=== PATIENT | male | born 1990 | race Caucasian/White ===

== ENCOUNTER 2023-10-14 07:58 | Emergency (ER) | payer SELFPAY ==
[2023-10-14] MEDS ORDERED: Lorazepam 2 MG/ML VIAL ONE (08:06)
[2023-10-14 08:44] LABS: #Basophils 0.1 10x3/uL (0.0-0.2); #Eosinphils 0.3 10x3/uL (0.0-0.5); #Monocytes 0.7 10x3/uL (0.0-1.1); #Neutrophils 9.8 10x3/uL (1.5-8.4); %Basophils 0.5 % (0.0-2.0); %Eosinophils 1.9 % (0.0-6.0); %Lymphocytes 17.5 % (18.0-47.0); %Neutrophils 74.6 % (40.0-75.0); Hematocrit 50.6 % (38.8-50.0); Mean Corpuscular HGB CONC 35.6 g/dL (32.0-36.0); Mean Corpuscular Hemoglobin 31.7 pg (27.0-33.0); Mean Corpuscular Volume 89.1 fl (81.2-95.1); Platelet Count 299 10x3/uL (150-450); RBC Distribution Width 13.4 % (11.5-14.5); Red Blood Cell (RBC) Count 5.68 10x6/uL (4.32-5.72); White Blood Cell (WBC) Count 13.1 10x3/uL (3.5-10.5)
[2023-10-14 09:02] LABS: Acetaminophen Less than 10 mcg/mL (10.0-30.0); Alcohol Less than 10.0 mg/dL (Less than 10); Salicylate Less than 8.0 mg/dL (15.0-30.0)
[2023-10-14 09:04] LABS: ALT (SGPT) 45 U/L (8-55); AST (SGOT) 47 U/L (5-34); Albumin 4.7 g/dL (3.5-5.0); Alkaline Phosphatase 77 U/L (40-110); Anion Gap 17 mmol/L (10-20); BUN (Urea Nitrogen) 10 mg/dL (8.9-20.6); CK (CPK) 1004 U/L (30-200); Calc. Creatinine Clearance 0 mL/min (70-130); Calcium 10.1 mg/dL (7.8-10.44); Carbon Dioxide 19 mmol/L (22-29); Chloride 106 mmol/L (98-107); Estimated GFR 87; Globulin 3.1 g/dL (2.4-3.5); Glucose 106 mg/dL (70-105); Protein, Total 7.8 g/dL (6.0-8.3); Sodium 138 mmol/L (136-145)
[2023-10-14 09:05] LABS: Troponin I Less than 0.010 ng/mL (< 0.028)
[2023-10-14 09:50] LABS: Bilirubin Neg (Negative); Blood, Urine Negative (Negative); Glucose, Urine (Dipstick) Normal (Negative); Ketone, Urine 5 mg/dL (Negative); Leukocyte Negative (Negative); Nitrite Negative (Negative); Protein, Urine (Dipstick) Negative (Neg-Trace); Specific Gravity, Urine 1.005 (1.005-1.030); Urobilinogen Normal mg/dL (Less than 2)
[2023-10-14 09:53] LABS: Clarity Clear (Clear)
[2023-10-14 09:58] LABS: Amphetamine Not Detected (NotDetected); Barbiturates Screen Not Detected (NotDetected); Benzodiazepine Screen Not Detected (NotDetected); Cocaine Metabolite Screen Not Detected (NotDetected); Methadone Not Detected (NotDetected); Methamphetamine Not Detected (NotDetected); Opiate Screen Not Detected (NotDetected); Oxycodone Screen Not Detected (NotDetected); Phencyclidine (PCP) Not Detected (NotDetected); THC/Cannabinoid Screen Not Detected (NotDetected); Tricyclic Screen Not Detected (NotDetected)
[2023-10-14 10:00] LABS: Bacteria/HPF None Seen HPF (None Seen); CAUTI Indications for Culture Pelvic or flank pain; RBC/HPF None Seen HPF (0-3); Squamous Epithelial 0-3 HPF (0-3); WBC/HPF None Seen HPF (0-3)
[2023-10-14 10:01] LABS: Urine Culture Reflex No No
[2023-10-14 13:08] LABS: Actual Bicarbonate (HCO3v) 23.6 mEq/L (22-28); Analyzer IN Cardio CS ER; Base Excess 3.1 mEq/L (-2 - +2); Calcium, Ionized (venous) 1.14 mmol/L (1.16-1.32); Chloride (VBG) 104 mmol/L (98-106); Hematocrit-VBG 56 % (42.0-52.0); Hemoglobin (Hb) 18.9 g/dL (13.2-17.3); Potassium (VBG) 3.93 mmol/L (3.70-5.30); Puncture Site Other Site; RapidComm Collect By CBN; Sodium 143 mmol/L (133-146); pH (venous) 7.555 (7.32-7.43)
== END 2023-10-14 09:18 | disposition home or self-care (01) ==
LOC: CSHERS 07:58
DX: R41.82 Altered mental status, unspecified (principal); F17.210 Nicotine dependence, cigarettes, uncomplicated; F17.220 Nicotine dependence, chewing tobacco, uncomplicated
CPT/HCPCS: 36415; 36416; 71045; 80053; 80306; 80307; 81001; 82550; 82805; 83605; 84484; 85025; 93005; 96361; 96374; J2060

== ENCOUNTER 2023-10-17 11:24 | Emergency (ER) | payer SELFPAY | END 2023-10-17 11:56 | disposition home or self-care (01) | LOC: CSHERS 11:24 | DX: M79.672 Pain in left foot (principal); F17.210 Nicotine dependence, cigarettes, uncomplicated; F17.220 Nicotine dependence, chewing tobacco, uncomplicated | CPT/HCPCS: 99283 ==

== ENCOUNTER 2023-12-17 18:09 | Emergency (ER) | payer SELFPAY ==
[2023-12-17 21:36] LABS: #Basophils 0.1 10x3/uL (0.0-0.2); #Eosinphils 0.6 10x3/uL (0.0-0.5); #Monocytes 0.6 10x3/uL (0.0-1.1); #Neutrophils 6.4 10x3/uL (1.5-8.4); %Basophils 0.5 % (0.0-2.0); %Eosinophils 5.4 % (0.0-6.0); %Lymphocytes 26.2 % (18.0-47.0); %Monocytes 5.9 % (0.0-10.0); %Neutrophils 61.4 % (40.0-75.0); Hematocrit 47.5 % (38.8-50.0); Hemoglobin 15.9 g/dL (13.5-17.5); Mean Corpuscular HGB CONC 33.5 g/dL (32.0-36.0); Mean Corpuscular Hemoglobin 31.5 pg (27.0-33.0); Mean Corpuscular Volume 94.2 fl (81.2-95.1); Mean Platelet Volume 9.1 fl (7.4-10.4); Platelet Count 230 10x3/uL (150-450); RBC Distribution Width 15.4 % (11.5-14.5); Red Blood Cell (RBC) Count 5.04 10x6/uL (4.32-5.72); White Blood Cell (WBC) Count 10.3 10x3/uL (3.5-10.5)
[2023-12-17 21:48] LABS: ALT (SGPT) 28 U/L (8-55); AST (SGOT) 23 U/L (5-34); Albumin 4.3 g/dL (3.5-5.0); Alkaline Phosphatase 83 U/L (40-110); Anion Gap 14 mmol/L (10-20); BUN (Urea Nitrogen) 7 mg/dL (8.9-20.6); Bilirubin, Total 0.5 mg/dL (0.2-1.2); Calc. Creatinine Clearance 0 mL/min (70-130); Calcium 9.2 mg/dL (7.8-10.44); Carbon Dioxide 25 mmol/L (22-29); Chloride 103 mmol/L (98-107); Estimated GFR 103; Globulin 2.9 g/dL (2.4-3.5); Glucose 98 mg/dL (70-105); Potassium 4.3 mmol/L (3.5-5.1); Protein, Total 7.2 g/dL (6.0-8.3); Sodium 138 mmol/L (136-145)
== END 2023-12-17 22:54 | disposition home or self-care (01) ==
LOC: CSHERS 18:09
DX: I82.812 Embolism and thrombosis of superficial veins of left lower extremity (principal); F17.210 Nicotine dependence, cigarettes, uncomplicated
CPT/HCPCS: 36415; 71045; 71275; 80053; 85025; 93005

== ENCOUNTER 2024-01-20 10:44 | Emergency (ER) | payer SELFPAY ==
[2024-01-20 11:37] LABS: #Basophils 0.1 10x3/uL (0.0-0.2); #Eosinphils 0.3 10x3/uL (0.0-0.5); #Monocytes 0.6 10x3/uL (0.0-1.1); #Neutrophils 5.1 10x3/uL (1.5-8.4); %Basophils 0.9 % (0.0-2.0); %Eosinophils 3.3 % (0.0-6.0); %Lymphocytes 24.5 % (18.0-47.0); %Monocytes 7.5 % (0.0-10.0); %Neutrophils 63.3 % (40.0-75.0); Hematocrit 47.4 % (38.8-50.0); Mean Corpuscular HGB CONC 35.9 g/dL (32.0-36.0); Mean Corpuscular Hemoglobin 34.3 pg (27.0-33.0); Mean Corpuscular Volume 95.8 fl (81.2-95.1); Mean Platelet Volume 9.1 fl (7.4-10.4); Platelet Count 202 10x3/uL (150-450); Red Blood Cell (RBC) Count 4.95 10x6/uL (4.32-5.72)
[2024-01-20 11:57] LABS: ALT (SGPT) 23 U/L (8-55); AST (SGOT) 29 U/L (5-34); Albumin 4.4 g/dL (3.5-5.0); Alkaline Phosphatase 69 U/L (40-110); Anion Gap 13 mmol/L (10-20); BUN (Urea Nitrogen) 8 mg/dL (8.9-20.6); Bilirubin, Total 0.4 mg/dL (0.2-1.2); Calc. Creatinine Clearance 0 mL/min (70-130); Calcium 9.1 mg/dL (7.8-10.44); Carbon Dioxide 28 mmol/L (22-29); Chloride 99 mmol/L (98-107); Estimated GFR 93; Globulin 2.7 g/dL (2.4-3.5); Glucose 89 mg/dL (70-105); Protein, Total 7.1 g/dL (6.0-8.3); Sodium 136 mmol/L (136-145)
[2024-01-20] MEDS ORDERED: Furosemide 40 MG (4 mL) VIAL ONE (12:14)
[2024-01-20 12:15] LABS: Magnesium 2.1 mg/dL (1.6-2.6)
[2024-01-20 12:19] LABS: Troponin I Less than 0.010 ng/mL (< 0.028)
[2024-01-20] MEDS ORDERED: fentaNYL 50 mcg/mL 1 mL Vial ONE (12:47)
== END 2024-01-20 13:20 | disposition home or self-care (01) ==
LOC: CSHERS 10:44
DX: J81.1 Chronic pulmonary edema (principal); F17.290 Nicotine dependence, other tobacco product, uncomplicated; F17.210 Nicotine dependence, cigarettes, uncomplicated
CPT/HCPCS: 36415; 71045; 80053; 83735; 83880; 84484; 85025; 93005; 93970; 96374; J1940; J3010

== ENCOUNTER 2024-02-10 17:09 | Emergency (ER) | payer OTHER, SELFPAY ==
[~2024-02-10 17:09] MED LIST: Iopamidol 300 61% 100 ML VIAL FS ONE
[2024-02-10 17:50] LABS: #Basophils 0.1 10x3/uL (0.0-0.2); #Eosinphils 0.6 10x3/uL (0.0-0.5); #Monocytes 0.6 10x3/uL (0.0-1.1); #Neutrophils 7.1 10x3/uL (1.5-8.4); %Basophils 0.7 % (0.0-2.0); %Eosinophils 5.2 % (0.0-6.0); %Lymphocytes 21.5 % (18.0-47.0); %Monocytes 5.5 % (0.0-10.0); %Neutrophils 66.6 % (40.0-75.0); Hematocrit 46.6 % (38.8-50.0); Hemoglobin 16.2 g/dL (13.5-17.5); Mean Corpuscular HGB CONC 34.8 g/dL (32.0-36.0); Mean Corpuscular Hemoglobin 33.3 pg (27.0-33.0); Mean Corpuscular Volume 95.9 fl (81.2-95.1); Mean Platelet Volume 9.1 fl (7.4-10.4); Platelet Count 231 10x3/uL (150-450); RBC Distribution Width 12.8 % (11.5-14.5); Red Blood Cell (RBC) Count 4.86 10x6/uL (4.32-5.72); White Blood Cell (WBC) Count 10.7 10x3/uL (3.5-10.5)
[2024-02-10 18:06] LABS: ALT (SGPT) 37 U/L (8-55); AST (SGOT) 31 U/L (5-34); Albumin 4.2 g/dL (3.5-5.0); Alkaline Phosphatase 71 U/L (40-110); Anion Gap 17 mmol/L (10-20); BUN (Urea Nitrogen) 6 mg/dL (8.9-20.6); Bilirubin, Total 0.3 mg/dL (0.2-1.2); Calc. Creatinine Clearance 0 mL/min (70-130); Calcium 8.8 mg/dL (7.8-10.44); Carbon Dioxide 20 mmol/L (22-29); Chloride 104 mmol/L (98-107); Estimated GFR 111; Globulin 2.6 g/dL (2.4-3.5); Glucose 92 mg/dL (70-105); Potassium 3.6 mmol/L (3.5-5.1); Protein, Total 6.8 g/dL (6.0-8.3); Sodium 137 mmol/L (136-145)
[2024-02-10 18:12] LABS: Troponin I Less than 0.010 ng/mL (< 0.028)
[2024-02-10 19:54] LABS: Bilirubin Neg (Negative); Blood, Urine Negative (Negative); Clarity Clear (Clear); Glucose, Urine (Dipstick) Normal (Negative); Ketone, Urine Negative (Negative); Leukocyte Negative (Negative); Nitrite Negative (Negative); Protein, Urine (Dipstick) Negative (Neg-Trace); Specific Gravity, Urine 1.005 (1.005-1.030); Urobilinogen Normal mg/dL (Less than 2)
[2024-02-10 20:13] LABS: Bacteria/HPF Rare-Few HPF (None Seen); CAUTI Indications for Culture Alt mental st,lethar; RBC/HPF None Seen HPF (0-3); Squamous Epithelial 0-3 HPF (0-3); WBC/HPF None Seen HPF (0-3)
[2024-02-10 20:14] LABS: Urine Culture Reflex No No
[2024-02-10 20:44] LABS: Amphetamine Not Detected (NotDetected); Barbiturates Screen Not Detected (NotDetected); Benzodiazepine Screen Not Detected (NotDetected); Cocaine Metabolite Screen Not Detected (NotDetected); Methadone Not Detected (NotDetected); Methamphetamine Not Detected (NotDetected); Opiate Screen Not Detected (NotDetected); Oxycodone Screen Not Detected (NotDetected); Phencyclidine (PCP) Not Detected (NotDetected); THC/Cannabinoid Screen Not Detected (NotDetected); Tricyclic Screen Not Detected (NotDetected)
== END 2024-02-10 19:50 | disposition home or self-care (01) ==
LOC: CSHERS 17:09
DX: R55 Syncope and collapse (principal); F10.90 Alcohol use, unspecified, uncomplicated; F17.290 Nicotine dependence, other tobacco product, uncomplicated
CPT/HCPCS: 70450; 71275; 80053; 80306; 81001; 83880; 84484; 85025; 93005; Q9967

== ENCOUNTER 2024-02-12 19:56 | Emergency (ER) | payer SELFPAY ==
[2024-02-12 20:31] LABS: #Basophils 0.1 10x3/uL (0.0-0.2); #Eosinphils 0.5 10x3/uL (0.0-0.5); #Monocytes 0.8 10x3/uL (0.0-1.1); #Neutrophils 9.7 10x3/uL (1.5-8.4); %Basophils 0.7 % (0.0-2.0); %Eosinophils 3.6 % (0.0-6.0); %Lymphocytes 18.6 % (18.0-47.0); %Monocytes 5.5 % (0.0-10.0); %Neutrophils 70.9 % (40.0-75.0); Hematocrit 48.5 % (38.8-50.0); Hemoglobin 16.8 g/dL (13.5-17.5); Mean Corpuscular HGB CONC 34.6 g/dL (32.0-36.0); Mean Corpuscular Hemoglobin 33.8 pg (27.0-33.0); Mean Corpuscular Volume 97.6 fl (81.2-95.1); Mean Platelet Volume 9.3 fl (7.4-10.4); Platelet Count 240 10x3/uL (150-450); RBC Distribution Width 12.6 % (11.5-14.5); Red Blood Cell (RBC) Count 4.97 10x6/uL (4.32-5.72); White Blood Cell (WBC) Count 13.7 10x3/uL (3.5-10.5)
[2024-02-12 20:44] LABS: Acetaminophen Less than 10 mcg/mL (10.0-30.0); Alcohol 11.1 mg/dL (Less than 10); Salicylate Less than 8.0 mg/dL (15.0-30.0)
[2024-02-12 20:45] LABS: ALT (SGPT) 34 U/L (8-55); AST (SGOT) 29 U/L (5-34); Albumin 4.4 g/dL (3.5-5.0); Alkaline Phosphatase 74 U/L (40-110); Anion Gap 15 mmol/L (10-20); BUN (Urea Nitrogen) 9 mg/dL (8.9-20.6); Bilirubin, Total 0.3 mg/dL (0.2-1.2); Calc. Creatinine Clearance 0 mL/min (70-130); Calcium 9.2 mg/dL (7.8-10.44); Carbon Dioxide 25 mmol/L (22-29); Chloride 105 mmol/L (98-107); Estimated GFR 94; Globulin 2.8 g/dL (2.4-3.5); Glucose 98 mg/dL (70-105); Potassium 3.8 mmol/L (3.5-5.1); Protein, Total 7.2 g/dL (6.0-8.3); Sodium 141 mmol/L (136-145)
[2024-02-12 20:48] LABS: Troponin I Less than 0.010 ng/mL (< 0.028)
[2024-02-12 22:01] LABS: Amphetamine Not Detected (NotDetected); Barbiturates Screen Not Detected (NotDetected); Benzodiazepine Screen Not Detected (NotDetected); Cocaine Metabolite Screen Not Detected (NotDetected); Methadone Not Detected (NotDetected); Methamphetamine Not Detected (NotDetected); Opiate Screen Not Detected (NotDetected); Oxycodone Screen Not Detected (NotDetected); Phencyclidine (PCP) Not Detected (NotDetected); THC/Cannabinoid Screen Not Detected (NotDetected); Tricyclic Screen Not Detected (NotDetected)
== END 2024-02-12 22:24 | disposition home or self-care (01) ==
LOC: CSHERS 19:56
DX: R07.9 Chest pain, unspecified (principal); F17.210 Nicotine dependence, cigarettes, uncomplicated
CPT/HCPCS: 36415; 71045; 71275; 80053; 80306; 80307; 83880; 84484; 85025; 85379; 93005

== ENCOUNTER 2024-05-05 08:26 | Emergency (ER) | payer SELFPAY ==
[2024-05-05 09:43] LABS: Amphetamine Not Detected (NotDetected); Barbiturates Screen Not Detected (NotDetected); Benzodiazepine Screen Not Detected (NotDetected); Cocaine Metabolite Screen Not Detected (NotDetected); Methadone Not Detected (NotDetected); Methamphetamine Not Detected (NotDetected); Opiate Screen Not Detected (NotDetected); Oxycodone Screen Not Detected (NotDetected); Phencyclidine (PCP) Not Detected (NotDetected); THC/Cannabinoid Screen Not Detected (NotDetected); Tricyclic Screen Not Detected (NotDetected)
[2024-05-05 09:45] LABS: #Basophils 0.04 10x3/uL (0.0-0.2); #Eosinphils 0.09 10x3/uL (0.0-0.5); #Monocytes 0.83 10x3/uL (0.0-1.1); #Neutrophils 14.01 10x3/uL (1.5-8.4); %Basophils 0.2 % (0.0-2.0); %Eosinophils 0.5 % (0.0-6.0); %Lymphocytes 9.5 % (18.0-47.0); %Neutrophils 84.2 % (40.0-75.0); Hematocrit 44.8 % (38.8-50.0); Hemoglobin 15.5 g/dL (13.5-17.5); Mean Corpuscular HGB CONC 34.6 g/dL (32.0-36.0); Mean Corpuscular Hemoglobin 31.9 pg (27.0-33.0); Mean Corpuscular Volume 92.2 fL (81.2-95.1); Mean Platelet Volume 9.7 fL (7.4-10.4); Platelet Count 202 10x3/uL (150-450); RBC Distribution Width 13.1 % (11.5-14.5); Red Blood Cell (RBC) Count 4.86 10x6/uL (4.32-5.72); White Blood Cell (WBC) Count 16.7 10x3/uL (3.5-10.5)
[2024-05-05 10:02] LABS: ALT (SGPT) 39 U/L (8-55); AST (SGOT) 36 U/L (5-34); Acetaminophen Less than 10 mcg/mL (10.0-30.0); Alcohol Less than 10.0 mg/dL (Less than 10); Alkaline Phosphatase 79 U/L (40-110); Anion Gap 18 mmol/L (10-20); BUN (Urea Nitrogen) 7 mg/dL (8.9-20.6); Bilirubin, Total 0.4 mg/dL (0.2-1.2); Calc. Creatinine Clearance 0 mL/min (70-130); Calcium 9.2 mg/dL (7.8-10.44); Carbon Dioxide 20 mmol/L (22-29); Chloride 105 mmol/L (98-107); Estimated GFR 118; Globulin 2.7 g/dL (2.4-3.5); Glucose 111 mg/dL (70-105); Potassium 3.5 mmol/L (3.5-5.1); Protein, Total 6.7 g/dL (6.0-8.3); Salicylate Less than 8.0 mg/dL (15.0-30.0); Sodium 139 mmol/L (136-145)
[2024-05-05] MEDS ORDERED: Acetaminophen 500 MG TAB ONE (14:07)
== END 2024-05-05 15:17 ==
LOC: CSHERS 08:26
DX: S01.81XA Laceration without foreign body of other part of head, initial encounter (principal); F17.290 Nicotine dependence, other tobacco product, uncomplicated; W22.8XXA Striking against or struck by other objects, initial encounter
CPT/HCPCS: 80053; 80306; 80307; 85025; 99285

== ENCOUNTER 2025-11-26 03:41 | Emergency (ER) | payer OTHER, SELFPAY ==
[2025-11-26] MEDS ORDERED: Ketorolac Tromethamine 30 MG (1 mL) VIAL ONE (04:07)
[2025-11-26] MEDS ORDERED: Famotidine/PF 20 mg/2ml Vial ONE (04:07)
[2025-11-26] MEDS ORDERED: Lidocaine Viscous Sol 2% 15 ml UD Cup ONE (04:07)
[2025-11-26] MEDS ORDERED: Mag-Al 1200 mg/1200 mg/30 ML UDCUP ONE (04:07)
[2025-11-26 04:31] LABS: #Basophils 0.04 10x3/uL (0.0-0.2); #Eosinophils 0.41 10x3/uL (0.0-0.5); #Monocytes 0.55 10x3/uL (0.0-1.1); #Neutrophils 5.38 10x3/uL (1.5-8.4); %Basophils 0.4 % (0.0-2.0); %Eosinophils 4.4 % (0.0-6.0); %Lymphocytes 31.8 % (18.0-47.0); %Monocytes 5.9 % (0.0-10.0); %Neutrophils 57.3 % (40.0-75.0); Hematocrit 48.9 % (38.8-50.0); Hemoglobin 16.5 g/dL (13.5-17.5); Mean Corpuscular Hemoglobin 30.4 pg (27.0-33.0); Mean Corpuscular Volume 90.2 fL (81.2-95.1); Platelet Count 205 10x3/uL (150-450); Red Blood Cell (RBC) Count 5.42 10x6/uL (4.32-5.72); White Blood Cell (WBC) Count 9.39 10x3/uL (3.5-10.5)
[2025-11-26 04:42] LABS: ALT (SGPT) 19 U/L (Less than 45); AST (SGOT) 19 U/L (11-34); Albumin 4.4 g/dL (3.1-4.5); Alkaline Phosphatase 70 U/L (40-110); Anion Gap 15 mmol/L (10-20); BUN (Urea Nitrogen) 10 mg/dL (8.9-20.6); Bilirubin, Total 0.5 mg/dL (0.3-1.2); Calc. Creatinine Clearance 0 mL/min (70-130); Calcium 9.4 mg/dL (7.8-10.44); Carbon Dioxide 28 mmol/L (22-29); Chloride 103 mmol/L (98-107); Globulin 2.7 g/dL (2.4-3.5); Glucose 103 mg/dL (70-105); Potassium 3.8 mmol/L (3.5-5.1); Sodium 142 mmol/L (136-145)
[2025-11-26 04:43] LABS: Acetaminophen Less than 10 mcg/mL (Less than 10); Lipase 86 U/L (8-78); Magnesium 1.9 mg/dL (1.6-2.6); Salicylate Less than 8.0 mg/dL (Less than 8.0)
[2025-11-26 05:05] LABS: Troponin I Less than 0.010 ng/mL (< 0.028)
[2025-11-26] MEDS ORDERED: Acetaminophen 500 MG TAB ONE (05:26)
[2025-11-26] MEDS ORDERED: Iopamidol 300 61% 100 ML VIAL FS ONE (08:43)
[2025-11-26] MEDS ORDERED: PROPOFOL 20 ML ONE (11:31)
[2025-11-26] MEDS ORDERED: Lidocaine 1% PF 5 ML VIAL ONE (11:33)
[2025-11-26] MEDS ORDERED: Rocuronium Bromide 10 MG/ML (10ML VIAL) ONE (11:33)
[2025-11-26] MEDS ORDERED: Ondansetron PF 4 MG/2 ML Vial ONE (11:33)
[2025-11-26] MEDS ORDERED: Glucagon 1 MG/ML KIT ONE (11:55)
[2025-11-26] MEDS ORDERED: Bupivacaine/Epinephrine 0.25% 30 ML VIAL ONE (11:55)
[2025-11-26] MEDS ORDERED: PHENYLEPHRINE-NS 100 MCG/ML 10 ML SYRINGE ONE (13:17)
[2025-11-26] MEDS ORDERED: SUGAMMADEX SODIUM 200 MG/2 ML VIAL ONE (13:38)
[2025-11-26] MEDS ORDERED: HYDROcodone/Acetaminophen 5/325 mg Tablet ONE (14:31)
== END 2025-11-26 15:00 | disposition home or self-care (01) ==
LOC: CSHERS 03:41
PROC: 0FT44ZZ Resection of Gallbladder, Percutaneous Endoscopic Approach (ICD-10-PCS; principal; 2025-11-26)
DX: K80.12 Calculus of gallbladder with acute and chronic cholecystitis without obstruction (principal); F17.200 Nicotine dependence, unspecified, uncomplicated
CPT/HCPCS: 47531; 74177; 76705; 80053; 80307; 83690; 83735; 84484; 85025; 87428; 88304; 93005; 96361; 96365; 96375; C1889; J1100; J1308; J1611; J1885; J2270; J2405; J2543; J2550; J2704; J3010; Q9967